=== PATIENT | male | born 1995 ===

== ENCOUNTER 2018-09-11 09:37 | Emergency (ER) | payer SELFPAY ==
--- NOTE | 2018-09-11 10:10 | ED ---
Abdominal Pain/Male - HPI Summary HPI Summary: Patient is a 24 y/o M presenting to ED with complaints left upper back pain with radiation to left flank and LUQ for the past week. Pain is constant but waxes and wanes in intensity. He notes that pain typically increases after work , patient works at night, sleeps during day. N/V, decreased appetite is endorsed , patient denies injury. Onset of subjective fever yesterday is reported as well. No chest pain, no SOB is reported. He notes that gallbladder is still present. No PMHx, no PSHx, patient does not smoke cigarettes, use drugs. Occasional alcohol usage is reported. On triage, pain is rated 3/10. Nothing is noted to aggravate/alleviate Sx. Home medications and allergies are reviewed. - History of Current Complaint Chief Complaint: EDAbdPain Stated Complaint: CHEST PAIN/BACK PAIN/NAUSEA AND VOMITING Hx Obtained From: Patient Onset/Duration: Lasting Days - fever, Lasting Weeks - pain for past week, Still Present Timing: Constant, Lasting Days - fever, Lasting Weeks - pain for past week Severity Initially: Mild - 3/10 Severity Currently: Mild - 3/10 Pain Intensity: 3 Pain Scale Used: 0-10 Numeric - 3/10 Location: Discrete At: LUQ Radiates: Yes Radiates to: Back - left upper, Flank - left Aggravating Factor(s): Nothing Alleviating Factor(s): Nothing Associated Signs And Symptoms: Positive: Fever, Back Pain, Decreased Appetite, Nausea, Vomiting, Other - no SOB. Negative: Chest Pain - Allergies/Home Medications Allergies/Adverse Reactions: Allergies Allergy/AdvReac Type Severity Reaction Status Date / Time No Known Allergies Allergy Verified 09/11/18 09:59 Home Medications: Home Medications Fluticasone Propionate [Flonase Allergy Relief] 9.9 ml BOTH NARES DAILY PRN 03/22 [History Confirmed 09/11/18] PMH/Surg Hx/FS Hx/Imm Hx Sensory History: Denies: Hx Legally Blind, Hx Deafness Opthamlomology History: Denies: Hx Legally Blind EENT History: Denies: Hx Deafness - Surgical History Surgery Procedure, Year, and Place: 09/11/18 - no PSHx reported on this date Infectious Disease History: No Infectious Disease History: Denies: Traveled Outside the [place] in Last 30 Days - Family History Known Family History: Positive: Diabetes - MOTHER Negative: Hypertension - Social History Alcohol Use: Occasionally Substance Use Type: Reports: None Smoking Status (MU): Never Smoked Tobacco Review of Systems Positive: Fever - subjective, on vitals, temp is 98.2 F Negative: Chest Pain Negative: Shortness Of Breath Positive: Abdominal Pain, Vomiting, Nausea, Other - POSITIVE - DECREASED Positive: flank pain - LEFT , other - POSITIVE - LEFT UPPER BACK PAIN All Other Systems Reviewed And Are Negative: Yes Physical Exam - Summary Physical Exam Summary: VITAL SIGNS: Reviewed. GENERAL: Patient is a well-developed and nourished male who is lying comfortable in the stretcher. Patient is not in any acute respiratory distress. HEAD AND FACE: Normocephalic and atraumatic. EYES: PERRLA, EOMI x 2, No injected conjunctiva. EARS: Hearing grossly intact. Ear canals and tympanic membranes are WNL. MOUTH: Oropharynx within normal limits. NECK: Supple, trachea is midline, no adenopathy, no JVD. CHEST: Symmetric, no tenderness at palpation LUNGS: Clear to auscultation bilaterally. No wheezing or crackles. CVS: RRR, S1 and S2 present, no murmurs or gallops appreciated. ABDOMEN: Soft. Some left flank tenderness. No signs of distention. Positive bowel sounds. No rebound no guarding, and no masses palpated. No abdominal bruit or pulsations. EXTREMITIES: FROM in all major joints, no edema, no cyanosis or clubbing. NEURO: Alert and oriented x 3. No acute neurological deficits. Speech is normal. SKIN: Dry and warm Triage Information Reviewed: Yes Vital Signs On Initial Exam: Initial Vitals Temp Pulse Resp BP Pulse Ox 98.2 F 60 16 124/78 99 09/11/18 09:52 09/11/18 09:52 09/11/18 09:52 09/11/18 09:52 09/11/18 09:52 Vital Signs Reviewed: Yes Diagnostics - Vital Signs Vital Signs Temp Pulse Resp BP Pulse Ox 09/11/18 09:52 98.2 F 60 16 124/78 99 - Laboratory Result Diagrams: 09/11/18 10:35 09/11/18 10:35 Lab Statement: Any lab studies that have been ordered have been reviewed, and results considered in the medical decision making process. - CT abd/pel ct CT Interpretation Completed By: Radiologist Summary of CT Findings: ABD/PEL CT IMPRESSION: #. Negative for urolithiasis. # . Mild pelvicaliectasis of the LEFT kidney without ureteral dilatation and suggestion of. a crossing vessel at the UPJ junction possibly reflecting mild UPJ stenosis. #. No perinephric stranding evident to strongly suggest presence of pyelonephritis however. correlation with clinical assessment and urinalysis is suggested. This report was reviewed by ED physician. - Ultrasound No standard instances Ultrasound Interpretation Completed By: Radiologist Summary of Ultrasound Findings: GALLBLADDER US IMPRESSION: Likely gallbladder polyp measuring up to 0.5 cm. No biliary ductal dilatation. is noted. This report was reviewed by ED physician. - EKG 1025 Cardiac Rate: Bradycardia - rate of 58 BPM EKG Rhythm: Sinus Bradycardia Summary of EKG Findings: EKG showed sinus bradycardia with rate of 58 BPM, no ST elevations, early repolarization. Re-Evaluation - Re-Evaluation First Eval Re-Evaluation Time: 10:17 Comment: Nurse notes that patient stated that his sinuses have been back up and he has been taking a lot of sinus medications. Second Eval Re-Evaluation Time: 13:01 Comment: At this point the patient is asymptomatic he doesnt have any pain. He does not have any nausea. He was given by mouth daily intake and he did not have any nausea and vomiting. Therefore the patient will be discharged home with follow-up with primary care physician. I would also give a referral for urology. I discussed all the findings and test results with the patient. Patient was instructed to return to the emergency room immediately if any of the symptoms return or worsens. Plan of care was discussed with the patient and understands and agrees. All questions were answered at patient satisfaction. There were no further complaints or concerns. Lung exam before discharge: CTA B/ L. Good air exchange. No wheezing or crackles heard. CVS: S1 and S2 present. No murmurs appreciated. Patient is alert and oriented x 3. Patient is hemodynamically stable. Patient will be discharged home with follow up PCP in the next 2-3 days Abdominal Pain Fem Course/Dx - Course Assessment/Plan: Patient is a 24 y/o M presenting to ED with complaints left upper back pain with radiation to left flank and LUQ for the past week. Pain is constant but waxes and wanes in intensity. He notes that pain typically increases after work, patient works at night, sleeps during day. N/V, decreased appetite is endorsed, patient denies injury. Onset of subjective fever yesterday is reported as well. No chest pain, no SOB is reported. He notes that gallbladder is still present. No PMHx, no PSHx, patient does not smoke cigarettes, use drugs. Occasional alcohol usage is reported. On triage, pain is rated 3/10. Nothing is noted to aggravate/alleviate Sx. Home medications and allergies are reviewed. Blood work without any significant abnormality except for increased lipase of 213. Urinalysis is negative for UTI. Abdomen and pelvic CT impression: Negative for ureterolithiasis. 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 No perinephric stranding evident to a strongly suggests presence of pyelonephritis, however correct assessment and urinalysis is suggested. Because of this abnormal findings and will suggest the patient to follow up with urology. Urinalysis is negative for UTI. Right upper quadrant ultrasound impression: Likely gallbladder polyp measuring up to 0.5 cm. No biliary ductal dilation is noted. At this point the patient is asymptomatic he doesnt have any pain. He does not have any nausea. He was given by mouth daily intake and he did not have any nausea and vomiting. Therefore the patient will be discharged home with follow-up with primary care physician. I would also give a referral for urology. I discussed all the findings and test results with the patient. Patient was instructed to return to the emergency room immediately if any of the symptoms return or worsens. Plan of care was discussed with the patient and understands and agrees. All questions were answered at patient satisfaction. There were no further complaints or concerns. Lung exam before discharge: CTA B/ L. Good air exchange. No wheezing or crackles heard. CVS: S1 and S2 present. No murmurs appreciated. Patient is alert and oriented x 3. Patient is hemodynamically stable. Patient will be discharged home with follow up PCP in the next 2-3 days - Diagnoses Differential Diagnosis/HQI/PQRI: Bowel Obstruction, Constipation, Diverticulitis , Pancreatitis, Renal Colic, Ureteral Stone, Urinary Tract Infection Provider Diagnoses: Elevated lipase, Upper abdominal pain Discharge - Sign-Out/Discharge Documenting (check all that apply): Patient Departure - discharge Patient Received Moderate/Deep Sedation with Procedure: No - NO PROCEDURES DONE - Discharge Plan Condition: Stable Disposition: HOME Patient Education Materials: Acute Abdominal Pain (ED) Referrals: [facility] [Outside] - 3 Days Da Carrero MD [Medical Doctor] - 3 Days Additional Instructions: RETURN TO EMERGENCY DEPARTMENT FOR ANY NEW OR WORSENING SYMPTOMS. FOLLOW UP WITH PRIMARY CARE PHYSICIAN AND UROLOGIST WITHIN THREE DAYS. - Billing Disposition and Condition Condition: STABLE Disposition: Home - Attestation Statements Document Initiated by Scribe: Yes Documenting Scribe: GIRISH SADLER Provider For Whom Scribe is Documenting (Include Credential): MILADYS WESTBROOK MD Scribe Attestation: I, GIRISH SADLER , scribed for MILADYS WESTBROOK MD on 09/12/18 at 1107. Scribe Documentation Reviewed: Yes Provider Attestation: The documentation as recorded by the GIRISH joyce accurately reflects the service I personally performed and the decisions made by me, MILADYS WESTBROOK MD Status of Scribe Document: Viewed
[2018-09-11 10:42] LABS: ABS Basophils 0 10^3/ul (0-0.2); ABS Eosinophils 0.3 10^3/ul (0-0.6); ABS Lymphocytes 2.4 10^3/ul (1.0-4.8); ABS Monocytes 0.6 10^3/ul (0-0.8); ABS Neutrophils 4.6 10^3/ul (1.5-7.7); ABS Nucleated RBC 0 10^3/ul; Eosinophil % 3.2 %; Hematocrit 44 % (42-52); Hemoglobin 15.2 g/dl (14.0-18.0); Lymphocyte % 30.8 %; Mean Corpuscular HGB Conc 34 g/dl (31-36); Mean Corpuscular Hemoglobin 30 pg (27-31); Mean Corpuscular Volume 88 fL (80-94); Mean Platelet Volume 7.8 fL (7.4-10.4); Nucleated Red Blood Cells % 0; Platelet Count 222 10^3/ul (150-450); Red Blood Count 5.01 10^6/ul (4.00-5.40); Red Cell Distribution Width 13 % (10.5-15); White Blood Count 7.9 10^3/ul (3.5-10.8)
[2018-09-11 11:04] LABS: ALT 14 U/L (7-52); AST 16 U/L (13-39); Albumin 4.4 g/dL (3.2-5.2); Albumin/Globulin Ratio 1.7 (1-3); Alkaline Phosphatase 63 U/L (34-104); Anion Gap 5 mmol/L (2-11); Blood Urea Nitrogen 15 mg/dL (6-24); C Reactive Protein < 1.00 mg/L (<8.01); CO2 Carbon Dioxide 26 mmol/L (22-32); Calcium 9.1 mg/dL (8.6-10.3); Chloride 109 mmol/L (101-111); Creatine Kinase 158 U/L (10-223); EGFR African American 152.3 (>60); EGFR Non-African American 125.9 (>60); Globulin 2.6 g/dL (2-4); Glucose 102 mg/dL (70-100); Potassium 3.6 mmol/L (3.5-5.0); Sodium 140 mmol/L (135-145)
[2018-09-11] MEDS ORDERED: Ondansetron INJ* 2 MG/ML VIAL IV ONE (11:07)
[2018-09-11] MEDS ORDERED: NS 0.9% 1000 ML** 1,000 ML IV ONE (11:07)
[2018-09-11 11:37] LABS: Urine Appearance Clear; Urine Bilirubin Negative (Negative); Urine Blood Negative (Negative); Urine Color Colorless; Urine Glucose Negative (Negative); Urine Ketones Negative (Negative); Urine Nitrite Negative (Negative); Urine Protein Negative (Negative); Urine Specific Gravity 1.004 (1.010-1.030); Urine Urobilinogen Negative (Negative)
[2018-09-11 11:44] LABS: Cholesterol 112 mg/dL; HDL Cholesterol 32.1 mg/dL; LDL Cholesterol 25 mg/dL; Triglycerides 273 mg/dL
[2018-09-11 13:03] VITALS: BP 106/60
== END 2018-09-11 13:13 | disposition home or self-care (01) ==
LOC: EDBD → ED 09:37
DX: R10.12 Left upper quadrant pain (principal); R74.8 Abnormal levels of other serum enzymes; M54.6 Pain in thoracic spine; R00.1 Bradycardia, unspecified; R50.9 Fever, unspecified; R11.2 Nausea with vomiting, unspecified
CPT/HCPCS: 36415; 74176; 76705; 80053; 80061; 81003; 82550; 83605; 83690; 85025; 86140; 93005; 96360; 99283; J2405